=== PATIENT | male | born 1960 | race Two or more races ===

== ENCOUNTER 2019-12-19 06:15 | Day surgery (SDC) | payer OTHER | END 2019-12-19 11:00 | disposition home or self-care (01) | LOC: AMB-ENDOS 06:15 → ADM 14:30 | DX: D12.0 Benign neoplasm of cecum (principal); D12.3 Benign neoplasm of transverse colon; D12.4 Benign neoplasm of descending colon; D12.8 Benign neoplasm of rectum; K57.30 Diverticulosis of large intestine without perforation or abscess without bleeding; Z12.11 Encounter for screening for malignant neoplasm of colon ==

== ENCOUNTER 2023-01-12 05:30 | Day surgery (SDC) | payer OTHER | END 2023-01-12 11:00 | disposition home or self-care (01) | LOC: AMB-ENDOS 05:30 | PROVIDERS: ATTEND Colon & Rectal Surgery | DX: K57.30 Diverticulosis of large intestine without perforation or abscess without bleeding (principal); K64.8 Other hemorrhoids; K62.5 Hemorrhage of anus and rectum; R19.4 Change in bowel habit; Z20.822 Contact with and (suspected) exposure to COVID-19 ==